=== PATIENT | male | born 1985 | race American Indian/Alaskan Native ===

== ENCOUNTER 2017-10-20 10:15 | Emergency (ER) | payer SELFPAY ==
[2017-10-20] MEDS ORDERED: TYLENOL PO ONE (10:30)
[2017-10-20] MEDS ORDERED: MOTRIN PO ONE (10:30)
[2017-10-20] MEDS ORDERED: MOTRIN ONE (10:36)
[2017-10-20] MEDS ORDERED: TYLENOL ONE (10:36)
[2017-10-20 12:37] VITALS: BP 126/74
[2017-10-20] MEDS ORDERED: ZOFRAN IV ONE (12:41)
[2017-10-20 12:45] LABS: Bilirubin,Urine NEG (Negative); Blood,Urine NEG (Negative); Color,Urine Yellow (Yellow); Mucus,Urine 3+ /HPF; Nitrite,Urine NEG (Negative); Urobilinogen,Urine < 2.0 mg/dL (<2.0)
[2017-10-20] MEDS ORDERED: ZOFRAN ODT PO ONE ×2 (12:45→16:17)
--- NOTE | 2017-10-20 12:47 | Emergency Department Report ---
Chief Complaint: Upper Respiratory Infection Stated Complaint: FLU LIKE SYMPTOMS Time Seen by Provider: 10/20/17 12:29 - HPI History of Present Illness: Pt is a 32 yo male here for flu like symptoms and feels that he got the flu from his son who was recently diagnosed.Pt states that he has been vomiting and has had no diarrhea. Pt states he has had urgency and that his back has been hurting; pt denied any hematochezia - ROS Review of Systems: ROS: all other symptoms neg except as noted per HPI - Exam Vital Signs: Vital Signs 10/20/17 10/20/17 10/20/17 10:22 10:40 12:36 Temperature 101.4 F H 99.1 F Pulse Rate 110 H 74 Respiratory 24 18 16 Rate Blood Pressure 118/80 Blood Pressure 126/74 [Left] O2 Sat by Pulse 96 99 Oximetry Physical Exam: PE: general: awake , alert non-toxic appearing in no acute distress Heent: eomi, perrla; mmm: moist;pharyn clear Lungs:clear Heart: RRR; no g/m/r Abd: soft ND. +Bs; nt; no peritoneal signs MSE screening note: Focused history and physical exam performed. Due to findings the following was ordered: ED Disposition for MSE Condition: Stable Referrals: PRIMARY CARE, [Primary Care Provider] - 3-5 Days
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
[2017-10-20] MEDS ORDERED: ZOFRAN ODT ONE (16:19)
== END 2017-10-20 19:00 | disposition home or self-care (01) ==
LOC: ED 10:15
DX: J06.9 Acute upper respiratory infection, unspecified (principal); B34.9 Viral infection, unspecified; M54.5 Low back pain; G89.29 Other chronic pain; F17.200 Nicotine dependence, unspecified, uncomplicated; F12.10 Cannabis abuse, uncomplicated
CPT/HCPCS: 81001; 87400; 99283; Q0162